=== PATIENT | female | born 1945 | race Caucasian/White ===

== ENCOUNTER 2023-09-01 14:21 | Inpatient (IN) ==
[2023-09-01 15:32] LABS: ABS Lymphocytes 0.8 10^3/uL (1.0-4.8); ABS Monocytes 0.8 10^3/uL (0.0-0.9); ABS Neutrophils 13.8 10^3/uL (1.5-7.6); ABS Nucleated RBC 0.01 10^3/ul; Eosinophil % 0.1 %; Hematocrit 33.1 % (35-45); Hemoglobin 10.9 g/dL (11.5-14.3); Mean Corpuscular Hemoglobin 27.9 pg (27-33); Mean Corpuscular Hgb Conc 32.9 g/dL (31-36); Mean Corpuscular Volume 84.8 fL (80-97); Mean Platelet Volume 6.5 fL (7.5-11.2); Platelet Count 396 10^3/uL (150-450); Red Cell Distribution Width 16.4 % (12-17); White Blood Count 15.3 10^3/uL (3.8-11.8)
[2023-09-01 16:03] LABS: Albumin 3.5 g/dL (3.2-5.2); Albumin/Globulin Ratio 1.1 (1-3); Calcium 10.3 mg/dL (8.6-10.3); Creatinine, Serum 0.72 mg/dL (0.51-0.95); Globulin 3.3 g/dL (2-4); Potassium 4.2 mmol/L (3.5-5.0); Total Bilirubin 0.8 mg/dL (0.2-1.0); Total Protein 6.8 g/dL (6.4-8.9); eGFR CKD-EPI 86.6 (>60)
[2023-09-01] MEDS ORDERED: Albuterol HFA INHALER 8 gm MDI INH PRN (17:57)
[2023-09-01] MEDS: NS 0.9% 1000 ml BAG 1,000 ML IV SCH (18:03)
[2023-09-01] MEDS: Enoxaparin 40 MG/0.4 ML SYR SUBCUT SCH (18:09)
[2023-09-01] MEDS: Ondansetron 4 mg VIAL 2 MG/ML 2 ml VIAL IV PRN (18:11)
[2023-09-01] MEDS: Magnesium CITRATE LIQ 300 ML BTL PO ONE (19:49)
[2023-09-01] MEDS: Lactulose 30 ml UDC PO SCH (19:49)
[2023-09-02 07:20] LABS: ABS Eosinophils 0.1 10^3/uL (0.0-0.5); ABS Monocytes 0.8 10^3/uL (0.0-0.9); ABS Neutrophils 11.8 10^3/uL (1.5-7.6); ABS Nucleated RBC 0.01 10^3/ul; Eosinophil % 0.4 %; Hematocrit 32.9 % (35-45); Hemoglobin 10.8 g/dL (11.5-14.3); Lymphocyte % 7.3 %; Mean Corpuscular Hemoglobin 28.4 pg (27-33); Mean Corpuscular Hgb Conc 32.8 g/dL (31-36); Mean Corpuscular Volume 86.7 fL (80-97); Mean Platelet Volume 7.1 fL (7.5-11.2); Platelet Count 284 10^3/uL (150-450); Red Cell Distribution Width 16.9 % (12-17); White Blood Count 13.7 10^3/uL (3.8-11.8)
[2023-09-02 07:57] LABS: ALT 11 U/L (7-52); Albumin 3.1 g/dL (3.2-5.2); Albumin/Globulin Ratio 1.1 (1-3); Alkaline Phosphatase 183 U/L (35-149); Anion Gap 12 mmol/L (2-16); Blood Urea Nitrogen 18 mg/dL (6-24); CO2 Carbon Dioxide 22 mmol/L (22-32); Calcium 9.4 mg/dL (8.6-10.3); Chloride 94 mmol/L (101-111); Creatinine, Serum 0.78 mg/dL (0.51-0.95); Globulin 2.8 g/dL (2-4); Glucose 77 mg/dL (70-100); Sodium 128 mmol/L (135-145); Total Bilirubin 0.8 mg/dL (0.2-1.0); Total Protein 5.9 g/dL (6.4-8.9); eGFR CKD-EPI 78.7 (>60)
[2023-09-02 09:33] LABS: Potassium Redraw 4.8 mmol/L (3.5-5.0)
[2023-09-02] MEDS: Iodixanol (CONTRAST) 320 MG/ML 100 ML SDV IV ONE (17:54)
[2023-09-02] MEDS: Iohexol 300 (CONTRAST) 10 ML SDV IV ONE (18:26)
[2023-09-02] MEDS: Morphine ORAL.SOLN 10 mg 2 mg/ml UDC 5 ml (10 mg) PO PRN (22:54)
[2023-09-03 05:08] LABS: Hematocrit 29.4 % (35-45); Hemoglobin 9.9 g/dL (11.5-14.3); Mean Corpuscular Hgb Conc 33.8 g/dL (31-36); Mean Corpuscular Volume 85.8 fL (80-97); Mean Platelet Volume 6.4 fL (7.5-11.2); Platelet Count 339 10^3/uL (150-450); Red Blood Count 3.43 10^6/uL (3.63-4.92); Red Cell Distribution Width 16.5 % (12-17); White Blood Count 15.1 10^3/uL (3.8-11.8)
[2023-09-03 05:39] LABS: Calcium 8.9 mg/dL (8.6-10.3); Creatinine, Serum 0.71 mg/dL (0.51-0.95); Magnesium 1.7 mg/dL (1.9-2.7); Potassium 4.5 mmol/L (3.5-5.0); eGFR CKD-EPI 88.1 (>60)
[2023-09-03] MEDS: Magnesium Sulfate 2 gm BAG 2 GM/50 ML BAG IVPB ONE (09:14)
[2023-09-03] MEDS ORDERED: PEG 3000 GI LAVAGE 1 GALLON PO ONE (10:43)
[2023-09-03] MEDS: PEG 3000 GI LAVAGE 1 GALLON PO ONE (13:02)
[2023-09-03] MEDS: Morphine ER 15 mg TAB ** extended release PO SCH (22:00)
[2023-09-04 06:56] LABS: Hematocrit 30.8 % (35-45); Hemoglobin 10.2 g/dL (11.5-14.3); Mean Corpuscular Hemoglobin 28.3 pg (27-33); Mean Corpuscular Volume 85.8 fL (80-97); Mean Platelet Volume 6.8 fL (7.5-11.2); Platelet Count 357 10^3/uL (150-450); Red Blood Count 3.59 10^6/uL (3.63-4.92); Red Cell Distribution Width 16.8 % (12-17); White Blood Count 18.6 10^3/uL (3.8-11.8)
[2023-09-04 07:13] LABS: Calcium 8.9 mg/dL (8.6-10.3); Creatinine, Serum 0.7 mg/dL (0.51-0.95); Magnesium 2.1 mg/dL (1.9-2.7); Potassium 4.7 mmol/L (3.5-5.0); eGFR CKD-EPI 89.6 (>60)
[2023-09-04] MEDS: D5NS 0.9% 1000 ml BAG 1,000 ML IV SCH (12:18)
[2023-09-04 12:28] LABS: Urine Appearance Clear; Urine Bilirubin Negative (Negative); Urine Blood 2+ (Negative); Urine Color Yellow; Urine Glucose Negative (Negative); Urine Ketones Negative (Negative); Urine Nitrite Negative (Negative); Urine Protein 1+ (>=30 mg/dL) (Negative); Urine Specific Gravity 1.029 (1.002-1.030); Urine Urobilinogen 1+ (Negative)
[2023-09-04 12:42] LABS: Urine Bacteria Absent /HPF (Absent); Urine Red Blood Cell 3+(>10/hpf) /HPF (0-Trace); Urine Squamous Epithelial Cell Present /HPF (Absent); Urine White Blood Cell 3+(>20/hpf) /HPF (0-Trace)
[2023-09-04] MEDS: PEG 3000 GI LAVAGE 1 GALLON PO ONE (15:49)
[2023-09-04] MEDS ORDERED: Polyethylene Glycol 3350 17 GM PACKET PO PRN (17:10)
[2023-09-05 06:07] LABS: ABS Lymphocytes 0.7 10^3/uL (1.0-4.8); ABS Monocytes 0.9 10^3/uL (0.0-0.9); ABS Neutrophils 15.6 10^3/uL (1.5-7.6); ABS Nucleated RBC 0.01 10^3/ul; Eosinophil % 0.1 %; Hematocrit 30.1 % (35-45); Hemoglobin 9.9 g/dL (11.5-14.3); Lymphocyte % 4.2 %; Mean Corpuscular Hemoglobin 28.6 pg (27-33); Mean Corpuscular Volume 86.6 fL (80-97); Platelet Count 330 10^3/uL (150-450); Red Blood Count 3.47 10^6/uL (3.63-4.92); Red Cell Distribution Width 16.9 % (12-17); White Blood Count 17.3 10^3/uL (3.8-11.8)
[2023-09-05 07:03] LABS: Calcium 8.8 mg/dL (8.6-10.3); Creatinine, Serum 0.66 mg/dL (0.51-0.95); Potassium 4.6 mmol/L (3.5-5.0); eGFR CKD-EPI 90.9 (>60)
[2023-09-05] MEDS: cefTRIAXone 1 gm/50 mL D5W 1 GM/50 ML BAG IV SCH (10:58)
[2023-09-05] MEDS: PEG 3000 GI LAVAGE 1 GALLON PO ONE (17:39)
[2023-09-06 06:06] LABS: Hematocrit 30.7 % (35-45); Hemoglobin 10.1 g/dL (11.5-14.3); Mean Corpuscular Hemoglobin 28.7 pg (27-33); Mean Corpuscular Hgb Conc 32.9 g/dL (31-36); Platelet Count 350 10^3/uL (150-450); Red Blood Count 3.53 10^6/uL (3.63-4.92); Red Cell Distribution Width 16.9 % (12-17); White Blood Count 17.4 10^3/uL (3.8-11.8)
[2023-09-06 06:21] LABS: Calcium 9.2 mg/dL (8.6-10.3); Creatinine, Serum 0.69 mg/dL (0.51-0.95); Potassium 4.7 mmol/L (3.5-5.0); eGFR CKD-EPI 89.9 (>60)
[2023-09-06] MEDS ORDERED: Naloxone Nasal Spray 4 MG/0.1 ML NASAL.SPR INTRANASAL PRN (12:00)
[2023-09-06] MEDS: D5LR 1000 ml BAG 1,000 ML IV SCH (12:28)
[2023-09-07 05:38] LABS: ABS Lymphocytes 0.8 10^3/uL (1.0-4.8); ABS Monocytes 0.6 10^3/uL (0.0-0.9); ABS Neutrophils 14.6 10^3/uL (1.5-7.6); ABS Nucleated RBC 0.01 10^3/ul; Eosinophil % 0.1 %; Hematocrit 31.4 % (35-45); Hemoglobin 10.3 g/dL (11.5-14.3); Lymphocyte % 4.8 %; Mean Corpuscular Hemoglobin 28.3 pg (27-33); Mean Corpuscular Hgb Conc 32.8 g/dL (31-36); Mean Corpuscular Volume 86.2 fL (80-97); Mean Platelet Volume 6.8 fL (7.5-11.2); Nucleated Red Blood Cells % 0.1 %/100WBC (0.0-0.8); Platelet Count 366 10^3/uL (150-450); Red Blood Count 3.64 10^6/uL (3.63-4.92); Red Cell Distribution Width 17.3 % (12-17)
[2023-09-07 05:55] LABS: Calcium 9.7 mg/dL (8.6-10.3); Creatinine, Serum 0.81 mg/dL (0.51-0.95); Magnesium 2.1 mg/dL (1.9-2.7); Potassium 4.7 mmol/L (3.5-5.0); eGFR CKD-EPI 75.2 (>60)
[2023-09-07] MEDS: Scopolamine 1 mg/72hr PATCH TRANSDERM SCH (10:36)
[2023-09-07] MEDS: fentaNYL 100 mcg/2 ml 50 MCG/ML VIAL IV SLOW PU PRN ×2 (11:52→15:06)
[2023-09-07 14:56] LABS: Albumin 2.8 g/dL (3.2-5.2)
[2023-09-07] MEDS ORDERED: D5LR 1000 ml BAG 1,000 ML IV SCH (15:00)
[2023-09-07] MEDS: PPN (PERIPHERAL) 24 HR with D10W 1000 ml BAG 1,000 ML, Amino Acid Infusion 10% 850 ML, ... IV SCH (18:03)
[2023-09-08 06:58] LABS: Hematocrit 33.1 % (35-45); Hemoglobin 10.9 g/dL (11.5-14.3); Mean Corpuscular Hemoglobin 28.5 pg (27-33); Mean Corpuscular Hgb Conc 32.8 g/dL (31-36); Mean Platelet Volume 6.5 fL (7.5-11.2); Platelet Count 300 10^3/uL (150-450); Red Cell Distribution Width 17.2 % (12-17)
[2023-09-08 07:32] LABS: Calcium 9.8 mg/dL (8.6-10.3); Creatinine, Serum 0.89 mg/dL (0.51-0.95); Magnesium 2.1 mg/dL (1.9-2.7); eGFR CKD-EPI 67.1 (>60)
[2023-09-08 07:46] LABS: ABS Basophils 0.1 10^3/uL (0.0-0.1); ABS Lymphocytes 0.6 10^3/uL (1.0-4.8); ABS Monocytes 0.8 10^3/uL (0.0-0.9); ABS Neutrophils 13.4 10^3/uL (1.5-7.6); Eosinophil % 0.3 %; Lymphocyte % 4.3 %
[2023-09-08] MEDS ORDERED: PPN (PERIPHERAL) 24 HR with D10W 1000 ml BAG 1,000 ML, Amino Acid Infusion 10% 850 ML, ... IV SCH (12:01)
[2023-09-08 14:28] VITALS: BP 159/104
[2023-09-08] MEDS: PPN (PERIPHERAL) 24 HR with D10W 1000 ml BAG 1,000 ML, Amino Acid Infusion 10% 850 ML, ... IV SCH (17:07)
[2023-09-09] MEDS: Bismuth Subsalicylate (BTL) 525 MG/30 ML (BULK BTL) PO PRN (03:13)
[2023-09-09] MEDS: Morphine ORAL CONCENTRATE 5 MG/0.25 ML ORAL.SYRIN SL PRN (23:22)
[2023-09-12] MEDS: Calcium Carb (TUMS) 500 mg CHEW TAB PO PRN (04:58)
[2023-09-12] MEDS ORDERED: guaiFENesin 100 mg/5 ml LIQ unit dose cup PO PRN (16:49)
[2023-09-12] MEDS: guaiFENesin 100 mg/5 ml LIQ unit dose cup PO PRN (18:30)
[2023-09-13] MEDS: Hemorrhoidal OINT 1 TUBE PR PRN (02:12)
[2023-09-13] MEDS: fentaNYL PATCH 12 MCG/HR 1 PATCH TRANSDERM SCH (11:58)
[2023-09-13] MEDS: fentaNYL Patch Check Q Shift NOTE FOLLOW UP SCH (19:28)
[2023-09-14] MEDS: Ondansetron ODT 4 mg TAB 4 MG TAB SL PRN (05:14)
[2023-09-15 11:30] LABS: Rapid COVID-19 Molecular Undetected (Undetected)
== END 2023-09-16 14:50 | disposition hospice, home (50) | DRG 754 ==
LOC: CHOA 14:21 → MED 14:21 → SUATTDRO 14:25
PROVIDERS: ADMIT Internal Medicine Hematology & Oncology; ATTEND Internal Medicine